=== PATIENT | male | born 1965 | race Caucasian/White ===

== ENCOUNTER 2021-01-02 19:56 | Emergency (ER) | payer OTHER ==
[~2021-01-02] VITALS: Ht 193 cm; Wt 106.3 kg
[2021-01-02] MEDS ORDERED: PROP10TA16 PO (20:29)
[2021-01-02] MEDS ORDERED: LAMO150T4 PO (20:30)
[2021-01-02] MEDS ORDERED: LORA-446 PO (20:30)
--- NOTE | 2021-01-02 20:30 | NUR ---
patient resting in bed in NAD. mildly presenting anxious and states he went to today and found his BP to be elevated so went to [facility] and bought a BP cuff and monitor and took it multiple times and it was elevated. patient has history of anxiety taking propranolol and ativan at home
[2021-01-02 20:44] LABS: BASOPHILS % (AUTO) 2 % (0-1); EOSINOPHILS % (AUTO) 9 % (1-7); LYMPHOCYTES % (AUTO) 24 % (22-44); MEAN CORPUSCULAR HEMOGLOBIN 25.3 pg (27.5-34.5); MEAN CORPUSCULAR HGB CONC 31.8 g/dL (33.2-36.2); MEAN PLATELET VOLUME 8.4 fL (7.4-10.4); MONOCYTES % (AUTO) 9 % (2-9); NEUTROPHILS % (AUTO) 56 % (42-75); PLATELET COUNT 360 x10^3/uL (130-400); RED BLOOD COUNT 4.23 x10^6/uL (4.38-5.82); RED CELL DISTRIBUTION WIDTH 17.4 % (9.4-14.8)
[2021-01-02 20:49] LABS: MD NO
[2021-01-02 20:53] LABS: ANION GAP 7 mmol/L (5-15); CALCIUM 9.1 mg/dL (8.5-10.1); CHLORIDE 108 mmol/L (98-107); CREATININE 1.06 mg/dL (0.7-1.3)
[2021-01-02 20:56] LABS: TROPONIN I < 0.015 ng/mL (0.000-0.045)
--- NOTE | 2021-01-02 21:00 | NUR ---
safety maintained. call lopez in reach. will continue to monitor.
--- NOTE | 2021-01-02 21:03 | NUR ---
patient ambulated to bathroom.
--- NOTE | 2021-01-02 21:19 | NUR ---
rae collected and walked to lab by this RN. patient assumed he would now be leaving and removed all monitoring equipment from self. notified. will continue to monitor and spot check vitals.
[2021-01-02 21:41] LABS: MICROSCOPIC INDICATED
--- NOTE | 2021-01-02 22:04 | NUR ---
patient resting in bed using cell phone. patient reports blurry vision has resolved and he feels back to baseline. VS remain stable. BP continues to stabilize. waiting for UA results and Dr. Brown to re-assess
--- NOTE | 2021-01-02 23:13 | NUR ---
discharge instructions reviewed with patient. no further questions. all personal belongings with patient on dc. no IV placed during this ER visit. steady gait to lobby. all symptoms resolved
[2021-01-02 23:14] VITALS: BP 134/84
== END 2021-01-02 23:17 | disposition home or self-care (01) ==
LOC: ED 21:23
DX: D50.0 Iron deficiency anemia secondary to blood loss (chronic) (principal); I10 Essential (primary) hypertension; R82.81 Pyuria; R94.31 Abnormal electrocardiogram [ECG] [EKG]; Z87.891 Personal history of nicotine dependence
CPT/HCPCS: 36415; 80048; 81001; 82040; 84484; 85025; 93005; 99284

== ENCOUNTER 2021-01-05 10:52 | Emergency (ER) | payer OTHER ==
[~2021-01-05] VITALS: Ht 193 cm; Wt 104.3 kg
[~2021-01-05 10:52] MED LIST: LAMO150T4 PO; LORA-446 PO; PROP10TA16 PO
--- NOTE | 2021-01-05 11:03 | NUR ---
PT AMBULATED BACK TO ROOM WITH [employer]PER. WILL DO EKG IN ROOM.
[2021-01-05] MEDS ORDERED: LISINOPRIL 10 MG TABLET ONE (11:43)
--- NOTE | 2021-01-05 11:51 | NUR ---
PT AMBULATORY TO ROOM 37 W/ C/O DUMONT AND BLURRUY VISION STARTED YESTERDAY. PT CAME TO ED AD NORMALIZED WHILE IN ED. WAS NOT GIVEN RX FOR BP AT THAT TIME. PT HAD SIMILAR SX THIS AM AND CAME BACK TO ED. STATES AT WORK BP WAS 240'S/180'S. PT RESTING ON GURNEY. MONITORS IN PLACE. PT STATES WHEN LAYING DOWN HE HAS NO SX. ORTHOSTATICS COMPLETED. NADN. VSS. MEDICATED PER JAN.
[2021-01-05] MEDS ORDERED: LISINOPRIL 10 MG TABLET PO ONE (12:00)
[2021-01-05 12:12] VITALS: BP 153/97
--- NOTE | 2021-01-05 12:15 | NUR ---
PT RESTING ON GURNEY. NADN. PEDERSON.
== END 2021-01-05 12:35 | disposition home or self-care (01) ==
LOC: ED 11:16
DX: I10 Essential (primary) hypertension (principal); Z87.891 Personal history of nicotine dependence
CPT/HCPCS: 93005; 99283

== ENCOUNTER → 2021-02-26 | Outpatient (CLI) | payer OTHER | END | disposition home or self-care (01) | LOC: CVU 08:14 | PROVIDERS: ATTEND Internal Medicine Cardiovascular Disease | DX: I77.810 Thoracic aortic ectasia (principal); K44.9 Diaphragmatic hernia without obstruction or gangrene; I10 Essential (primary) hypertension; E78.00 Pure hypercholesterolemia, unspecified | CPT/HCPCS: 75571; 93306; 93356 ==